=== PATIENT | female | born 1995 | race African-American/Black ===

== ENCOUNTER 2018-08-01 23:26 | Emergency (ER) | payer MEDICAID ==
[~2018-08-01] VITALS: Ht 172.7 cm; Wt 79.4 kg
[2018-08-01 23:56] VITALS: BP 138/68
--- NOTE | 2018-08-02 00:07 | NUR ---
ER Nurse Note: Pt BIBA from the streets c/o abnormal behavior, DTS. Pt was running in and out of traffic. Per EMS, no trauma noted, pt mute unable to assess allergy, name, pmh. Pt calm, no signs of external distress. Pt eyes closed, pressing hands together, pursed lip. Will continue to montior.
[2018-08-02] MEDS ORDERED: Haloperidol 5mg/ml Inj IM ONE (00:45)
--- NOTE | 2018-08-02 03:15 | Emergency Room Report ---
History of Present Illness General Chief Complaint: Behavioral Complaint Source: EMS Present Illness HPI This is a 23-year-old female with history of schizophrenia. Initially she presents as a Sandhya Pittman. She was brought in by EMS for altered mental status. She was seen lying in the street. She would not respond to anybody. She would not move. There was no trauma. No injury. History is limited. Allergies: Coded Allergies: UNABLE TO ASSESS (Unverified , 08/01/18) Patient History Past Medical History: see triage record, old chart reviewed, psych hx Past Surgical History: unable to obtain Family History: unable to obtain Social History: unable to obtain Last Menstrual Period: unable to obtain Now: No - unable to obtain Immunizations: other Reviewed Nursing Documentation: PMH: Agreed; PSxH: Agreed Nursing Documentation-PMH Past Medical History: Deferred Review of Systems All Other Systems: limited - Secondary to patient uncooperation Physical Exam Vital Signs Date Time Temp Pulse Resp B/P (MAP) Pulse Ox O2 Delivery O2 Flow Rate FiO2 08/01/18 23:32 98.1 60 16 138/68 98 Room Air vitals normal Sp02 EP Interpretation: reviewed, normal General Appearance: alert/responsive, no apparent distress, non-toxic Head: normocephalic, atraumatic Eyes: PERRL, EOMI ENT: oropharynx normal Neck: supple/symm/no masses Respiratory: effort normal, no rhonchi, no wheezing Cardiovascular: no murmur, gallop, rub Gastrointestinal: non-tender, no mass, non-distended, no rebound/guarding, normal bowel sounds Musculoskeletal: gait & station normal Neurologic: sensory intact, motor strength/tone normal Psychiatric: other - Patient with track me but when I looked at her she would close her eyes. She would not let me open them. She has her hands in a praying position on her abdomen. Skin: no rash, normal palpation Medical Decision Making Diagnostic Impression: Primary Impression: Schizophrenia, catatonic type ER Course She presents with altered mental status secondary to behavioral changes. Appear that she has psychosis with cataonic state. She responded and able to tell the nurse her name and date of after given a dose of Haldol. She did ask for Benadryl. No suicidal thoughts or homicidal thoughts. Patient is now awake and talking to me. She said she was taking Geodon. just [facility]. No criteria for 5150. We'll discharge in the morning. Last Vital Signs Date Time Temp Pulse Resp B/P (MAP) Pulse Ox O2 Delivery O2 Flow Rate FiO2 08/01/18 23:56 98.1 76 16 138/68 98 Room Air Status: improved Disposition: HOME, SELF-CARE Condition: Stable Scripts Ziprasidone Hcl* (GEODON*) 20 Mg Capsule 20 MG ORAL DAILY, #30 CAP 0 Refills Prov: Noah Barahona MD 08/02/18 Referrals: NOT CHOSEN IPA/,REFERRING (PCP) Additional Instructions: Take your psychiatric medication. Follow-up with mental health in a week. Return if worse. Noah Barahona MD Aug 02, 2018 03:15
--- NOTE | 2018-08-02 03:40 | NUR ---
ER Nurse Note: Pt was able to provide name, date of . Per pt, she is hearing voices but is not SI. Pt does not remember how and why she is in the ER; was reorientated pt. Pt ambualted with steady gait; no skin breakdown. Provided pt with extra blankets, juice, food. Pt now asleep, no signs of distress. All safety measures met; will continue to montior.
[2018-08-02 03:45] VITALS: BP 132/73
[2018-08-02] MEDS ORDERED: GEODON20 MG ORAL (04:18)
[2018-08-02 05:58] VITALS: BP 134/76
--- NOTE | 2018-08-02 05:58 | NUR ---
ER Nurse Note: Pt seen, treated, medically cleared for discharge by [facility]. Discharge instructions and prescriptions given; pt took the forms, threw it on the ground. Pt refused to sign discharge forms but proceeded to walk out of the ER with security. Instructed pt to follow up with primary care phyiscian within one week. Pt a&ox3, VSS, no signs of physcial distress. ID band removed. Left with all belongings, ambulates with steady gait.
== END 2018-08-02 05:58 | disposition home or self-care (01) ==
LOC: EDBD 23:26 → EMR 23:43 → EDBD 23:43 → EMR 08-02 05:58
DX: F20.2 Catatonic schizophrenia (principal)
CPT/HCPCS: 96372; 99283; J1630